=== PATIENT | female | born 1980 | race Caucasian/White ===

== ENCOUNTER → 2019-08-31 09:16 | Outpatient (CLI) | payer BC, SELFPAY ==
--- NOTE | ~2019-08-31 | MMUS_ITS ---
EXAMINATION: MM diagnostic ok BI w alicja, US breast RT limited HISTORY: Palpable lumps in the upper outer quadrant of the left breast TECHNIQUE: Craniocaudal, mediolateral, and mediolateral oblique 3-D tomosynthesis images of the michi ts were performed and synthetic 2-D images were generated. CAD analysis was submitted and interpreted . High resolution limited right breast ultrasound was performed. COMPARISON: 11/03/2016, 03/29/2012 BREAST PARENCHYMAL COMPOSITION: The breasts are heterogeneously dense, which may obscure small masses . FINDINGS: MAMMOGRAPHIC FINDINGS: Right breast: There appear to be two adjacent oval, obscured, equal density masses in the posterior t hird of the upper outer quadrant of the right breast which measure 2.5 cm and 1.5 cm correspond to th e palpable abnormality. There is a 1.1 x 0.6 cm oval, obscured, equal density mass at the 6:00 locati on in the middle third of the breast 5 cm from the nipple corresponding to the additional area of pal pable abnormality. Left breast: There is no evidence of suspicious mass, calcification, or architectural distortion to suggest malignancy. Stable cysts are noted in the left breast. There has been no suspicious interval change. ULTRASOUND: There are two adjacent cysts at the 10:00 location 9 cm from the nipple which measure 2.3 x 1.7 cm an d 1.1 x 1.3 cm and corresponds to the palpable abnormality of the upper outer quadrant. Additionally seen are cysts at the 11:00 location 3 cm from the nipple and the 9:00 location 6 cm from the nipple. There is a 6 mm cyst at the 7:00 location 7 cm from the nipple corresponding to the palpable abnorma lity of the lower breast. IMPRESSION: 1. No mammographic or sonographic evidence of malignancy. 2. Recommend continued clinical follow-up and routine annual screening mammography beginning at age 4 0. BI-RADS Category 2: Benign finding(s). Reviewed, dictated and finalized at location A. OR FINANCIAL REPORTING ANALYST IMPRESSION: 1. No mammographic or sonographic evidence of malignancy. 2. Recommend continued clinical follow-up and routine annual screening mammogra phy beginning at age 40. BI-RADS Category 2: Benign finding(s).
== END ==
PROVIDERS: Visit Provider Nurse Practitioner
DX: R92.8 Other abnormal and inconclusive findings on diagnostic imaging of breast (principal); N63.10 Unspecified lump in the right breast, unspecified quadrant
CPT/HCPCS: 76642; 77062; 77066; G0279

== ENCOUNTER → 2021-12-26 13:56 | Outpatient (CLI) | payer BC, SELFPAY ==
--- NOTE | ~2021-12-26 | MM_ITS ---
EXAMINATION: MM screening ok BI w alicja HISTORY: Screening TECHNIQUE: Craniocaudal and mediolateral oblique 3-D tomosynthesis images were obtained and synthetic 2-D images were generated. CAD analysis was submitted and interpreted. COMPARISON: Comparison to multiple prior studies sequentially, with oldest reviewed study dated 11/03. BREAST PARENCHYMAL COMPOSITION: The breasts are extremely dense, which lowers the sensitivity of mamm ography FINDINGS: There are developing bilateral breast masses and breast asymmetries. There are no suspiciou s calcifications. IMPRESSION: 1. Developing bilateral breast asymmetries and masses. 2. Additional mammographic views and possible breast ultrasound are recommended. BI-RADS Category 0: Incomplete: Needs additional imaging evaluation. Reviewed, dictated and finalized at location A. IMPRESSION: 1. Developing bilateral breast asymmetries and masses. 2. Additional mammographic views and possible breast ultrasound are recommended . BI-RADS Category 0: Incomplete: Needs additional imaging evaluation.
== END ==
PROVIDERS: PCP Family Medicine; Visit Provider Nurse Practitioner
DX: Z12.31 Encounter for screening mammogram for malignant neoplasm of breast (principal); R92.8 Other abnormal and inconclusive findings on diagnostic imaging of breast
CPT/HCPCS: 77063; 77067

== ENCOUNTER → 2022-01-07 09:30 | Outpatient (CLI) | payer BC, SELFPAY ==
--- NOTE | ~2022-01-07 | MMUS_ITS ---
EXAMINATION: MM diagnostic ok BI w alicja, US breast BI complete HISTORY: Follow-up bilateral breast masses seen on prior mammogram TECHNIQUE: Additional 3-D tomosynthesis images of the breasts were performed and synthetic 2-D images were generated. CAD analysis was submitted and interpreted. High resolution bilateral complete breas t ultrasound was performed. COMPARISON: Comparison to multiple prior studies sequentially, with oldest reviewed study dated 03/29. BREAST PARENCHYMAL COMPOSITION: The breasts are heterogenously dense, which may obscure small masses FINDINGS: MAMMOGRAPHIC FINDINGS: There are bilateral masses in both breasts, many of which are obscured by fibroglandular tissue. ULTRASOUND: Complete bilateral US of all 4 quadrants of the breasts and retroareolar region was reviewed. Right breast ultrasound: Multiple simple and complicated cyst of the right breast, largest at 10:00 m easuring 2.4 cm. In addition there are probable benign masses of the right breast at 7:00 measuring 5 mm, 6 cm from the nipple. This mass is oval hypoechoic without posterior features or internal vascul arity. At 10:00, 7 cm from the nipple there is an oval hypoechoic 9 mm mass without posterior feature s, likely benign. There is a second similar appearing mass at the same location measuring 6 mm. Left breast: Multiple simple and complicated cyst of the left breast. At 1:00, 8 cm from the nipple t here is a 1.7 cm cystic mass with internal septations, likely benign. No internal vascularity. There is posterior acoustic enhancement. At 1:00 8 cm from the nipple there is a oval hypoechoic mass measu ring 6 mm without posterior features or internal vascularity. At 2:00, 8 cm from the nipple there is an oval hypoechoic mass measuring 6 mm with parallel orientation, no posterior features, likely benig n. At 2:00, 8 cm from the nipple, there is an oval hypoechoic mass with low level internal echoes, po sterior acoustic enhancement measuring 7 mm, likely benign. At 2:00, 4 cm from the nipple, there is a cluster of cysts, largest measuring 1.7 cm. There is adjacent hypoechoic mass measuring 8 mm, also l ikely benign. IMPRESSION: 1. Multiple bilateral breast masses, most of which are benign cysts, although there are additional sl ightly more complicated masses which are also likely benign. 2. Recommend 6 month follow-up bilateral breast ultrasound and mammogram BI-RADS category 3, probably benign findings. Reviewed, dictated and finalized at location A. IMPRESSION: 1. Multiple bilateral breast masses, most of which are benign cysts, although t here are additional slightly more complicated masses which are also likely kurt gn. 2. Recommend 6 month follow-up bilateral breast ultrasound and mammogram BI-RADS category 3, probably benign findings.
== END ==
PROVIDERS: PCP Family Medicine; Visit Provider Obstetrics & Gynecology Gynecology
DX: N60.02 Solitary cyst of left breast (principal); N60.01 Solitary cyst of right breast; N63.21 Unspecified lump in the left breast, upper outer quadrant; R92.8 Other abnormal and inconclusive findings on diagnostic imaging of breast
CPT/HCPCS: 76641; 77062; 77066; G0279

== ENCOUNTER → 2022-07-09 09:28 | Outpatient (CLI) | payer BC, SELFPAY ==
--- NOTE | ~2022-07-09 | MMUS_ITS ---
EXAMINATION: MM diagnostic ok BI w alicja, US breast BI complete HISTORY: Six-month follow-up of multiple bilateral breast masses, most of which were reported to be b enign cysts, with additional slightly more complicated masses, also thought to be likely benign on examination TECHNIQUE: Full field and spot ML, MLO and CC 3-D tomosynthesis images of both breasts were performed and synthetic 2-D images were generated. CAD analysis was submitted and interpreted. High resolution complete bilateral breast ultrasound including all 4 quadrants and subareolar areas was performed. COMPARISON: 01/07/2022 bilateral diagnostic mammography and bilateral complete breast ultrasound 12/26/2021 bilateral screening mammogram BREAST PARENCHYMAL COMPOSITION: The breasts are heterogeneously dense, which may obscure small masses . FINDINGS: MAMMOGRAPHIC FINDINGS: Bilateral breast masses are suggested including the following: An approximately 1.8 cm circumscribed mass is noted in the posterior mid to lower outer right breast. Approximately 1.4 cm partially circumscribed partially obscured mass the posterior upper outer left b reast. Approximately 2.4 cm partially circumscribed mass in the upper outer left breast The heterogeneously dense stroma may obscure additional masses. Bilateral complete breast ultrasound examination was performed. No architectural distortion, malignant calcification, skin thickening or retraction of either breast is detected. ULTRASOUND: No suspicious mass or shadowing of either breast is detected. Right breast: Multiple scattered circumscribed cysts and circumscribed hypoechoic lesions without internal vascular ity or posterior shadowing are identified, the largest in 11 x 27 x 20 mm cyst at 9:00 6 cm from nipp le Left breast: Multiple scattered circumscribed hypoechoic lesions, septated cysts and simple cysts, th e largest situated in the left breast 2:00 position 5 cm from nipple, measuring 29 x 17 x 27 mm, with through transmission posterior enhancement. IMPRESSION: 1. Benign findings 2. Routine annual mammographic screening is recommended BI-RADS Category 2: Benign finding(s). Reviewed, dictated and finalized at location A. CONSULTANT IMPRESSION: 1. Benign findings 2. Routine annual mammographic screening is recommended BI-RADS Category 2: Benign finding(s).
== END ==
PROVIDERS: PCP Family Medicine; Visit Provider Obstetrics & Gynecology Gynecology
DX: N63.13 Unspecified lump in the right breast, lower outer quadrant (principal); N63.21 Unspecified lump in the left breast, upper outer quadrant
CPT/HCPCS: 76641; 77062; 77066; G0279

== ENCOUNTER → 2023-01-19 14:20 | Outpatient (CLI) | payer BC, SELFPAY ==
--- NOTE | ~2023-01-19 | US_ITS ---
EXAMINATION: US pelvic complete DATE: 01/19/2023 16:19 INDICATION: Excessive and frequent menstruation with regular periods. Endometriosis. TECHNIQUE: Multiple transabdominal sonographic images of the pelvis were obtained. COMPARISON: None. FINDINGS: The uterus measures 7.4 x 3.3 x 4.5 cm. There is no free fluid in the pelvis. The endometrial complex measures 7 mm in thickness. The right ovary measures 3.1 x 1.6 x 2.1 cm. The left ovary measures 3.3 x 2.4 x 3.3 cm. There is normal vascular flow in the ovaries. IMPRESSION: 1. Normal pelvis. Reviewed, dictated and finalized at location E. IMPRESSION: 1. Normal pelvis.
--- NOTE | ~2023-01-19 | MMUS_ITS ---
EXAMINATION: MM diagnostic ok BI w alicja, US breast BI complete HISTORY: New left breast lump at 1-3:00. History of breast cysts. TECHNIQUE: Additional 3-D tomosynthesis images of were performed and synthetic 2-D images were genera gwendolyn. CAD analysis was submitted and interpreted. High resolution breast ultrasound was performed. COMPARISON: 07/09/2022 bilateral diagnostic mammography and bilateral complete breast ultrasound exam ination 01/07/2022 bilateral diagnostic mammography and complete bilateral breast ultrasound 12/26/2021 bilateral screening mammogram BREAST PARENCHYMAL COMPOSITION: The breasts are heterogeneously dense, which may obscure small masses . FINDINGS: MAMMOGRAPHIC FINDINGS: Bilateral breast masses are noted, including low-density circumscribed approximately 2.3 x 3 cm mass in the posterior mid to upper outer right breast and approximately 18 x 20 mm similar low-density cir cumscribed opacity in the left subareolar area. Additional masses are noted, including probable 13 mm or larger cysts in the posterior upper outer left breast . Heterogeneously dense stroma may obscure additional masses. Bilateral complete breast ultrasound examination was performed. No malignant calcification, skin thickening or retraction. ULTRASOUND: No suspicious mass or shadowing of either breast is detected. Right breast: 12:00 3 cm from nipple: Parallel circumscribed sonolucency measuring 1.3 x 2.1 x 2.1 cm, with throug h transmission, consistent with simple cyst 12:00 4 cm from nipple: Parallel circumscribed hypoechoic 4 x 9.7 x 9.5 mm lesion without internal va scularity, with through transmission, likely a complicated cyst. 1:00 0.5 cm from nipple: 3.4 x 3.7 x 4.3 mm circumscribed hypoechoic lesion without internal vascular ity, with through transmission, likely benign 2:00 1 cm from nipple: 2.8 x 3.2 x 3.2 mm circumscribed sonolucency, likely a small cyst 7:00 7 cm from nipple: 3 x 4 x 4.5 mm cyst 8:00 6 cm from nipple: Septated cyst measuring approximately 2 x 4 mm 10:00 9 cm from nipple: 5.6 x 6.4 x 6 x 8 mm circumscribed hypoechoic lesion with through transmissio n, likely a complicated cyst 10:00 8 cm from nipple: Similar 6 x 6.7 x 6.3 mm virtually sonolucent lesion with through transmissio n, likely a cyst 10:00 6 cm from nipple: Parallel circumscribed sonolucency measuring 1 x 2.9 x 2.6 cm, consistent wit h simple cyst 11:00 4 cm from nipple: 4.7 x 6.9 x 6.2 mm cyst Left breast: 1:00 7 cm from nipple: 5.3 x 5.6 x 4.7 mm circumscribed primarily sonolucent lesion, likely a small c yst 1:00 6 cm from nipple: 6.3 x 5.5 mm, dictated cyst with through transmission posterior enhancement, n o internal vascularity 1:00 6 cm from nipple: Parallel circumscribed 11 x 7 x 13.6 mm cyst 1:00 6 mm from nipple: Septated 6.5 x 12 x 17 mm cyst 2:00 6 cm from nipple: Septated 6 x 7 mm cyst 2:00 5 cm from nipple: 3.7 x 5 mm cyst 2:00 5 cm from nipple: 4 x 5 mm cyst 3:00 6 cm from nipple: 5.8 x 4.4 x 8 mm mildly septated cyst 3:00 3 cm from nipple: 5.5 x 6.5 x 5.9 mm cyst with through transmission posterior enhancement 3:00 1 cm from nipple: Septated approximately 1.7 x 2 cm cyst 9:00 6 cm from nipple: 2.8 x 6.4 mm cyst 9:00 5 cm from nipple: 3.4 x 3.9 mm mildly complicated cyst with through transmission IMPRESSION: 1. Benign findings 2. Routine mammographic screening is recommended. BIRADS Category 2: Benign Reviewed, dictated and finalized at location A. IMPRESSION: 1. Benign findings 2. Routine mammographic screening is recommended. BIRADS Category 2: Benign
== END ==
PROVIDERS: PCP Nurse Practitioner; Visit Provider Nurse Practitioner
DX: N92.0 Excessive and frequent menstruation with regular cycle (principal); N63.20 Unspecified lump in the left breast, unspecified quadrant
CPT/HCPCS: 76641; 76856; 77062; 77066; G0279

== ENCOUNTER 2023-10-06 16:01 | Outpatient (CLI) | payer BC, SELFPAY ==
--- NOTE | ~2023-10-06 | XR_ITS ---
EXAMINATION: XR ankle LT 2V, XR foot LT 2V, XR foot RT 2V, XR ankle RT 2V DATE: 10/06/2023 17:10 INDICATION: Multiple joint pain TECHNIQUE: 1. Anteroposterior and lateral view of the left ankle were obtained. 2. Dorsoplantar and lateral views of the left foot were obtained. 3. Anteroposterior and lateral view of the right ankle were obtained. 4. Dorsoplantar and lateral views of the right foot were obtained. COMPARISON: None. FINDINGS: Alignment of the bilateral feet and ankles is normal. No fracture or osteochondral lesion. Mild osteo arthritis in the bilateral forefeet at the first metatarsophalangeal and several interphalangeal join ts. No erosions or periosteal reaction. No ankle joint effusion. The soft tissues are unremarkable. IMPRESSION: 1. 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 Reviewed, dictated and finalized at location A. IMPRESSION: 1. 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 IMPRESSION: 1. 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 IMPRESSION: 1. 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
--- NOTE | ~2023-10-06 | XR_ITS ---
XR sacroiliac joints min 3V 10/06/2023 17:10 Indication: Joint pain. Procedure: 3 view sacroiliac joints Comparison: No prior studies for comparison. Findings: Bilateral sacroiliac joints are symmetric without significant degenerative change, erosion or ankylosis. Sacral foramen are symmetric. Surrounding osseous structures are unremarkable. Impression: 1: No significant abnormality of the sacroiliac joints. Reviewed, dictated and finalized at location L. Impression: 1: No significant abnormality of the sacroiliac joints.
--- NOTE | ~2023-10-06 | XR_ITS ---
EXAMINATION: XR wrist RT 2V, XR hand LT 2V, XR wrist LT 2V, XR hand RT 2V DATE: 10/06/2023 17:10 INDICATION: Lateral joint pain TECHNIQUE: 1. Posteroanterior and lateral views of the left wrist were obtained. 2. Dorsal palmar and lateral views of the left hand were obtained. 3. Posteroanterior and lateral views of the right wrist were obtained. 4. Dorsal palmar and lateral views of the right hand were obtained. COMPARISON: None. FINDINGS: Alignment of the bilateral hands and wrists is normal. No fracture identified. Joint spaces are nor mal. No erosions. Soft tissues are unremarkable. IMPRESSION: 1. No osseous abnormalities of the bilateral hands and wrists. Reviewed, dictated and finalized at location A. IMPRESSION: 1. No osseous abnormalities of the bilateral hands and wrists. IMPRESSION: 1. No osseous abnormalities of the bilateral hands and wrists. IMPRESSION: 1. No osseous abnormalities of the bilateral hands and wrists.
--- NOTE | ~2023-10-06 | XR_ITS ---
[id number] 10/06/2023 17:10 Indication: Neck pain Procedure: 5 views of the cervical spine Comparison: No prior studies for comparison. Findings: No prevertebral soft tissue swelling. Vertebral body heights are maintained. No significant disc narrowing. No prevertebral soft tissue swelling. Lung apices are normal. Impression: 1: No significant abnormality of the cervical spine. Reviewed, dictated and finalized at location L. Impression: 1: No significant abnormality of the cervical spine.
== END 2023-10-06 16:02 ==
PROVIDERS: PCP Family Medicine; Visit Provider Internal Medicine
DX: R53.81 Other malaise (principal); M19.072 Primary osteoarthritis, left ankle and foot; M19.071 Primary osteoarthritis, right ankle and foot
CPT/HCPCS: 72040; 72202; 73100; 73120; 73600; 73620